=== PATIENT | male | born 1950 | race Hispanic/Latino ===

== ENCOUNTER 2018-01-25 18:51 | Emergency (ER) | payer BC ==
[2018-01-25 19:43] VITALS: RESP 18; BMI 29.8
[2018-01-25] MEDS ORDERED: cefTRIAXone (Rocephin) 1 gm Inj IM STA (19:56)
[2018-01-25] MEDS ORDERED: Rabies Immune Globulin 150 INTLU/ML VIAL IM STA (19:56)
--- NOTE | 2018-01-25 20:05 | ED PDOC ---
Arrival/HPI - General Chief Complaint: Bite Time Seen by Provider: 01/25/18 19:51 Historian: Patient - History of Present Illness Narrative History of Present Illness (Text): 01/25/18 19:58 68yo male with no pmhx who present with complaint of cat bit to left forearm 4days ago. States it was his own cat and is not vaccinated. He came to ED because he noticed redness and swelling to the area. Report mild pain to the area. Denies fever, chills, nausea, vomiting, dizziness, focal weakness, abdominal pain, any other complaint. Past Medical History - Provider Review Nursing Documentation Reviewed: Yes - Psychiatric Hx Substance Use: No - Anesthesia Hx Anesthesia: No Hx Anesthesia Reactions: No Hx Malignant Hyperthermia: No Family/Social History - Physician Review Nursing Documentation Reviewed: Yes Family/Social History: Unknown Family HX Smoking Status: Light Smoker < 10 Cigarettes Daily Hx Alcohol Use: Yes Frequency of alcohol use: Socially Hx Substance Use: No Allergies/Home Meds Allergies/Adverse Reactions: Allergies No Known Allergies Allergy (Verified 01/25/18 19:43) Review of Systems - Physician Review All systems were reviewed & negative as marked: Yes - Review of Systems Constitutional: Normal Eyes: Normal ENT: Normal Respiratory: Normal Cardiovascular: Normal Gastrointestinal: Normal Genitourinary Male: Normal Musculoskeletal: Normal Skin: Other (Cat bite to left forearm) Neurological: Normal Endocrine: Normal Hemo/Lymphatic: Normal Psychiatric: Normal Physical Exam Vital Signs Reviewed: Yes Vital Signs Temp Pulse Resp BP Pulse Ox 01/25/18 20:48 98.7 F 72 18 151/82 H 97 01/25/18 18:52 98.8 F 83 18 161/89 H 96 Temperature: Afebrile Blood Pressure: Normal Pulse: Regular Respiratory Rate: Normal Appearance: Positive for: Well-Appearing, Non-Toxic, Comfortable Pain Distress: None Mental Status: Positive for: Alert and Oriented X 3 - Systems Exam Head: Present: Atraumatic, Normocephalic Pupils: Present: PERRL Extroacular Muscles: Present: EOMI Conjunctiva: Present: Normal Mouth: Present: Moist Mucous Membranes Neck: Present: Normal Range of Motion Respiratory/Chest: Present: Clear to Auscultation, Good Air Exchange. No: Respiratory Distress, Accessory Muscle Use Cardiovascular: Present: Regular Rate and Rhythm, Normal S1, S2. No: Murmurs Abdomen: No: Tenderness, Distention, Peritoneal Signs Back: Present: Normal Inspection Upper Extremity: Present: Normal Inspection. No: Cyanosis, Edema Lower Extremity: Present: Normal Inspection. No: Edema Neurological: Present: GCS=15, CN II-XII Intact, Speech Normal Skin: Present: Warm, Dry, Normal Color, Other (Healing puncture wound noted to mid left forearm with almost circumferential erythema, warm to touch and swollen. No crepitus. NVI. ). No: Rashes Psychiatric: Present: Alert, Oriented x 3, Normal Insight, Normal Concentration Medical Decision Making ED Course and Treatment: 01/26/18 00:16 PT presented for stated history. He have cellulitis to his left forearm. He was treated with a gram of Rocephin and Augmentin rx given. He stated his TD booster is up date. He was given rabies vaccine. He was strongly advised to return to ED if the redness on his arm worsens, he developed fever or any new worsening symptoms. He was otherwise referred to his PMd/clinic. - Medication Orders Current Medication Orders: Discontinued Medications Ceftriaxone Sodium (Rocephin) 1 gm IM STAT STA PRN Reason: Protocol Stop: 01/25/18 19:57 Last Admin: 01/25/18 20:35 Dose: 1 gm IM Administration Charges Document 01/25/18 20:35 HI (Rec: 01/25/18 20:36 HI [id number]) Injection Site MAR Injection Site Left Deltoid Charges for Administration # of IM Administrations 1 Ibuprofen (Motrin Tab) 600 mg PO STAT STA Stop: 01/25/18 19:58 Last Admin: 01/25/18 20:32 Dose: 600 mg Rabies Immune Globulin (Imogam) 1,678 intlu IM .ONCE STA Stop: 01/25/18 19:57 Last Admin: 01/25/18 20:34 Dose: 1,678 intlu IM Administration Charges Document 01/25/18 20:34 HI (Rec: 01/25/18 20:34 HI [email or web address]) Charges for Administration # of IM Administrations 4 Immunization Registry Document 01/25/18 20:34 HI (Rec: 01/25/18 20:34 HI [email or web address]) Immunization Registry Consent Date 01/25/18 Rabies Vaccine Human Diploid Cell (Imovax Rabies) 2.5 units IM .ONCE ONE Stop: 01/25/18 19:57 Last Admin: 01/25/18 20:33 Dose: 2.5 units Immunization Registry Document 01/25/18 20:33 HI (Rec: 01/25/18 20:33 HI [email or web address]) Immunization Registry Consent Date 01/25/18 Disposition/Present on Arrival - Present on Arrival Any Indicators Present on Arrival: No History of DVT/PE: No History of Uncontrolled Diabetes: No Urinary Catheter: No History of Decub. Ulcer: No History Surgical Site Infection Following: None - Disposition Have Diagnosis and Disposition been Completed?: Yes Diagnosis: Cellulitis, Cat bite Disposition: HOME/ ROUTINE Disposition Time: 20:10 Patient Plan: Discharge Condition: STABLE Discharge Instructions (ExitCare): Cellulitis (Skin Infection), Adult (DC), Cellulitis (ED) Additional Instructions: Return to ED on January, , , and february 08 for the remaining rabies vaccine Return to ED immediately if you noticed worsening redness or nonhealing wound Follow up with your Doctor Prescriptions: Amoxicillin/Clavulanate [Augmentin 875 MG-125 MG] 1 tab PO BID #20 tab Ibuprofen [Motrin Tab] 600 mg PO Q6 #15 tab Referrals: PCP,NO [Primary Care Provider] - Follow up with primary Forms: [employer] ([place])
[2018-01-25 22:57] VITALS: BP 151/82; PULSE 72; TEMP 98.7; O2SAT 97
== END 2018-01-25 20:48 | disposition home or self-care (01) ==
LOC: ED 18:51
DX: S51.852A Open bite of left forearm, initial encounter (principal); W55.01XA Bitten by cat, initial encounter; L03.114 Cellulitis of left upper limb; F17.210 Nicotine dependence, cigarettes, uncomplicated
CPT/HCPCS: 90375; 90471; 90675; 96372; 99284; J0696